=== PATIENT | male | born 1960 | race Caucasian/White ===

== ENCOUNTER 2022-07-24 09:51 | Outpatient (CLI) | payer BC, SELFPAY ==
--- NOTE | 2022-07-24 10:04 | ECG_ITS ---
Measurements Intervals [place] Rate: 61 P: 22 KS: 197 QRS: -15 QRSD: 93 T: 21 QT: 364 QTc: 369 Interpretive Statements SINUS RHYTHM MINIMAL VOLTAGE CRITERIA FOR LVH, CONSIDER NORMAL VARIANT [MEETS CRITERIA IN ONE OF: R(aVL), S(V1), R(V5), R(V5/V6)+S(V1)] ABNORMAL ECG NO PREVIOUS ECG AVAILABLE FOR COMPARISON Electronically Signed On 07-24-2022 10:22:56 CDT by Stepan Daly M.D.
[2022-07-24 10:42] LABS: Anion Gap 14 mmol/L (8-16); Blood Urea Nitrogen 14 mg/dL (9-20); Calcium 9.5 mg/dL (8.4-10.2); Carbon Dioxide 26 mmol/L (22-30); Chloride 100 mmol/L (98-107); Estimated Glomerular Filt Rate > 60; Glucose 158 mg/dL (65-110); Potassium 4.3 mmol/L (3.4-5.0); Sodium 140 mmol/L (137-145)
== END 2022-07-24 09:52 | disposition home or self-care (01) ==
LOC: ANHSURGERY 09:57
PROVIDERS: Anesthesiology; PCP Family Medicine; Visit Provider Surgery
DX: Z01.818 Encounter for other preprocedural examination (principal); E11.9 Type 2 diabetes mellitus without complications; K40.90 Unilateral inguinal hernia, without obstruction or gangrene, not specified as recurrent; R94.31 Abnormal electrocardiogram [ECG] [EKG]
CPT/HCPCS: 36415; 80048; 86850; 86900; 86901; 93005

== ENCOUNTER 2022-07-30 00:51 | Day surgery (SDC) | payer BC, SELFPAY ==
[2022-07-23 12:58] VITALS: BMI 38.0
--- NOTE | 2022-07-23 13:00 | SUR.PREOP ---
Report to the Outpatient Waiting Room, entrance under the green pavilion located off [facility], at time _0600 on date _07/30/22 . Planned Procedure Time: _0730. Time changes happen often and if your time is changed the preop area will call you the afternoon before. - You and your visitor will be asked to self-screen and do not enter if you have any COVID symptoms. - We encourage only one visitor and NO visitors under age 16 are allowed at this time. Your visitor will receive communication by the phone number that is given day of service. - The patient visitor is requested to social distance or may leave the building when not with patient due to restrictions. - A mask is required within the hospital. Patients may have clear liquids (water, carbonated beverages, clear teas, apple juice) until 3 hours prior to surgery with a maximum of 20 ounces. - No food from midnight until time of surgery - Infants may have breast milk until 4 hours before surgery, infant formula 6 hours prior to surgery. - Children will be allowed to drink immediately following surgery. If applicable, please bring a bottle or sippy cup to assist with drinking. Juice, water, soda, and popsicles are readily available. For infants on formula, please bring formula the day of surgery. Pacifiers are allowed. Take the following medications with a SIP of water the morning of surgery: __METOPROLOL Medications to discontinue per physician _MULTIVITAMIN,VITAMIN B Date to take last dose__07/27/22 Please no make-up, nail croatian, hairspray, perfume, deodorant, or body powder the day of surgery. No jewelry (including any body piercings) or valuables the day of surgery, leave them at home. Please take a shower or bath the night before, or the morning of, surgery with an antibacterial soap. Wear comfortable, loose fitting clothing. Children are encouraged to wear pajamas. HIBICLENS SHOWER AM OF SURGERY. - Jewelry must be removed prior to entering the operating room. Rings and piercings that are not removed may be cut off. - The hospital will not accept responsibility for valuables. - Please leave all valuables, including medications, at home the day of surgery. If you are going home after surgery, a licensed assembly line driver must drive you home. - NO public transportation without another adult. - We recommend that an adult stay with you for 24 hours following discharge. - We also recommend that you do not drive, make important decision, drink alcoholic beverages, or take any drugs that were not prescribed by your health care provider for at least 24 hours after your discharge time. For Pediatric surgeries, we recommend two adults accompany the child home. Follow any additional instructions given to you from your surgeon. If you or anyone in your household have experienced Covid symptoms in the past week, please notify your surgeon or the nurse liaison at the phone number below for possible testing. Telephone instructions given to _WIFE WILSON GREY. and asked if any additional questions and then verbalized understanding. Patient advised to call surgeon office or pre surgery nurse liaison [phone] if any additional questions.
--- NOTE | 2022-07-29 09:58 | WPDANESEPPF ---
Anes - Initial Pre Proc Eval Procedure: Operation Date: 07/30/22 07:30 Proposed Procedures p Laparoscopic Bilateral Inguinal Hernia Repair with Mesh, Davinci Assisted - Urban Ramírez DO <Conner Matamoros MD - Last Filed: 08/02/22 10:45> Date/Time: 07/29/22 09:58 <Conner Matamoros MD - Last Filed: 08/02/22 10:45> Surgeon: Urban Ramírez DO <Conner Matamoros MD - Last Filed: 08/02/22 10:45> Pre Op Diagnosis: bilat inguinal hernia <Conner Matamoros MD - Last Filed: 08/02/22 10:45> Patient Data Age: 62 Gender: M Height: 1.73 m Weight: 113.63 kg <Conner Matamoros MD - Last Filed: 08/02/22 10:45> Allergies Allergy/AdvReac Type Severity Reaction Status Date / Time No Known Allergies Allergy Verified 07/23/22 12:32 <Conner Matamoros MD - Last Filed: 08/02/22 10:45> Home Medications Medication Instructions Recorded Confirmed Type aspirin 81 mg tablet,delayed 81 mg PO DAILY 11/07/21 07/30/22 History release (Lita Low Dose Aspirin) atorvastatin 40 mg tablet 40 mg PO DAILY #90 tabs 11/07/21 07/30/22 Rx metformin 1,000 mg tablet,extended 1,000 mg PO BID #180 tabs 11/07/21 07/30/22 Rx release 24hr cyanocobalamin (vitamin B-12) 1,000 mcg PO DAILY 05/10/22 07/30/22 History 1,000 mcg tablet dapagliflozin 10 mg tablet 10 mg PO DAILY #90 tabs 05/10/22 07/30/22 Rx (Farxiga) glimepiride 2 mg tablet 2 mg PO QAM #90 tabs 05/10/22 07/30/22 Rx irbesartan 300 mg tablet 300 mg PO DAILY #90 tabs 05/10/22 07/30/22 Rx metoprolol succinate 50 mg 50 mg PO DAILY 07/23/22 07/30/22 History tablet,extended release 24 hr multivitamin 1 tablet PO DAILY 07/23/22 07/30/22 History psyllium 1 packet PO TID 07/23/22 07/30/22 History hydrocodone 5 mg-acetaminophen 325 1 tablet PO Q4H PRN pain #10 tabs 07/30/22 Rx mg tablet <Conner Matamoros MD - Last Filed: 08/02/22 10:45> Patient hx anesthesia problems: none <Riccardo Bailey MD - Last Filed: 07/30/22 06:29> Family hx anesthesia problems: none <Riccardo Bailey MD - Last Filed: 07/30/22 06:29> Results Review: All pre-operative results and documents have been reviewed as part of the pre-operative evaluation. <Conner Matamoros MD - Last Filed: 08/02/22 10:45> [facility] Past Medical History Medical History: Medical History Bladder wall thickening BMI 37.0-37.9, adult BMI 38.0-38.9,adult Colon cancer screening normal colonoscopy at age 47 and at age 58 dorian Rinaldi in 10 years Diabetes Diabetic peripheral neuropathy associated with type 2 diabetes mellitus Elevated TSH (05/04/22) TSH slightly elevated at 5.24 on 05/04/2022. Encounter for prostate cancer screening PSA normal at 0.17 on 05/04/2022. Encounter for wellness examination in adult Essential hypertension Fatty liver disease, nonalcoholic Noted on CT the abdomen and pelvis on 01/11/2021. Labs on 05/04/2022 with GGT normal at 44, AST 33, ALT 38. Hearing loss HTN (hypertension) Inguinal hernia bilateral, non-recurrent (01/11/21) bilateral inguinal hernia 4.[address] abdomen and pelvis on 01/11/2021. Mixed hyperlipidemia Total cholesterol 111 with triglycerides elevated at 215 with HDL low at 32 and LDL normal at 51 on 05/04/2022. Obesity (BMI 30-39.9) Thick muscular wall of urinary bladder present on ultrasound Type 2 diabetes mellitus, without long-term current use of insulin Fasting glucose 188 with hemoglobin A1c 8.1 on 05/04/2022 with microalbumin ratio normal at 7. Vitamin B12 deficiency (05/04/22) Level low at 324 with goal greater than 400 on 05/04/2022 with hemoglobin 14.8. <Conner Matamoros MD - Last Filed: 08/02/22 10:45> Surgical History Surgical History: Surgical History History of cataract surgery S/P arthroscopic surgery of left knee <Conner Matamoros MD - Last Filed: 08/02/22 10:45> Fa
[2022-07-30] VITALS (7 sets, daily range): BP systolic 114–125; BP diastolic 66–89; PULSE 60–71; RESP 12–18; TEMP 36.4–37.5; O2SAT 93–99
[2022-07-30] MEDS: LACTATED RINGERS 1,000 ML 30 ML IV CONT ×2 (06:40→09:06)
[2022-07-30] MEDS: KETOROLAC 15 MG/ML VIAL (*BKC) IV PUSH (06:44)
[2022-07-30] MEDS: ACETAMINOPHEN 500 MG TABLET 1000 MG PO (06:45)
[2022-07-30 06:48] LABS: Glucose Point of Care 168 mg/dl (65-105)
--- NOTE | 2022-07-30 07:13 | PM.IMHP ---
H&P: HPI History of Present Illness Date/Time: 07/30/22 07:13 Chief Complaint: Bilateral inguinal hernia Narrative: 62 yo man presents for bilateral inguinal hernia repair. He denies any changes since last seen in office. Review of Systems Review of Systems: All systems reviewed & are unremarkable except as noted in HPI and below Constitutional: Constitutional: Denies chills, Denies fever(s), Denies headache(s) and Denies weight loss Eyes: Eyes: Denies change in vision ENT: Denies dizziness, Denies headache(s), Denies neck mass and Denies throat swelling Cardiovascular: Cardiovascular: Denies chest pain, Denies lightheadedness and Denies dyspnea Respiratory: Respiratory: Denies cough, Denies dyspnea and Denies wheezing Gastrointestinal: Gastrointestinal: Denies abdominal pain, Denies change in bowel habits, Denies nausea and Denies vomiting Genitourinary: Genitourinary: Denies hematuria and Denies dysuria Musculoskeletal: Musculoskeletal: Reports as per HPI Integumentary/Breasts: Skin/Breast: Reports as per HPI Neurologic: Denies dizziness and Denies headache(s) Allergic/Immunologic: Allergic/Immunologic: Denies throat swelling and Denies wheezing [facility] Past Medical History Medical History Bladder wall thickening BMI 37.0-37.9, adult BMI 38.0-38.9,adult Colon cancer screening normal colonoscopy at age 47 and at age 58 Dr. Will, recheck in 10 years Diabetes Diabetic peripheral neuropathy associated with type 2 diabetes mellitus Elevated TSH (05/04/22) TSH slightly elevated at 5.24 on 05/04/2022. Encounter for prostate cancer screening PSA normal at 0.17 on 05/04/2022. Encounter for wellness examination in adult Essential hypertension Fatty liver disease, nonalcoholic Noted on CT the abdomen and pelvis on 01/11/2021. Labs on 05/04/2022 with GGT normal at 44, AST 33, ALT 38. Hearing loss HTN (hypertension) Inguinal hernia bilateral, non-recurrent (01/11/21) bilateral inguinal hernia 4.[address] abdomen and pelvis on 01/11/2021. Mixed hyperlipidemia Total cholesterol 111 with triglycerides elevated at 215 with HDL low at 32 and LDL normal at 51 on 05/04/2022. Obesity (BMI 30-39.9) Thick muscular wall of urinary bladder present on ultrasound Type 2 diabetes mellitus, without long-term current use of insulin Fasting glucose 188 with hemoglobin A1c 8.1 on 05/04/2022 with microalbumin ratio normal at 7. Vitamin B12 deficiency (05/04/22) Level low at 324 with goal greater than 400 on 05/04/2022 with hemoglobin 14.8. Surgical History Surgical History History of cataract surgery S/P arthroscopic surgery of left knee Family History Family History Father Cancer Mother Diabetes mellitus Hypertension Sibling Hypertension Depression Heart disease Social History Social History Smoking status: Never smoker Tobacco type: cigarettes Smoking end date: 10/06/01 Additional smoking assessment comments: 1 ppd x10 Alcohol intake: never Substance use: never Substance use type: does not use Living arrangements: with family Spiritual care concerns: No Meds Home Medications and Allergies Home Medications Medication Instructions Recorded Confirmed Type aspirin 81 mg tablet,delayed 81 mg PO DAILY 11/07/21 07/30/22 History release (Lita Low Dose Aspirin) atorvastatin 40 mg tablet 40 mg PO DAILY #90 tabs 11/07/21 07/30/22 Rx metformin 1,000 mg tablet,extended 1,000 mg PO BID #180 tabs 11/07/21 07/30/22 Rx release 24hr cyanocobalamin (vitamin B-12) 1,000 mcg PO DAILY 05/10/22 07/30/22 History 1,000 mcg tablet dapagliflozin 10 mg tablet 10 mg PO DAILY #90 tabs 05/10/22 07/30/22 Rx (Farxiga) glimepiride 2 mg tablet 2 mg PO QAM #90 tabs 05/10/22 07/30/22 Rx ir
--- NOTE | 2022-07-30 07:15 | WPDHPUPDATE1 ---
History and Physical Update Update Date/Time: 07/30/22 07:15 History and Physical has been reviewed, including an updated exam of the patient. There are NO changes in the patient's condition. Risks, benefits, and alternatives have been discussed and questions answered. Patient agrees to proceed with procedure.
[2022-07-30] MEDS: ceFAZolin 2 GM/D5W 50 ML 2 GM/50 ML BAG IVPB (07:27)
[2022-07-30] MEDS: BUPIVACAINE/EPINEPHRINE 0.25% 50 ML VIAL 30 ML INFILTRATE (08:01)
--- NOTE | 2022-07-30 08:54 | W.PM.PROC2 ---
Procedure Note - Detailed Date of Procedure 07/30/22 Pre-op Diagnosis bilateral inguinal hernia Post-op Diagnosis Same (Direct right inguinal hernia, indirect left inguinal hernia) Procedure Performed Laparoscopic bilateral inguinal hernia repair with mesh, da Sarika assisted Surgeon Urban Ramírez, Anesthesia General and Local (0.5% bupivacaine with epinephrine) Indications This is a 62-year-old man who presented with bilateral inguinal discomfort and tightness with physical activity for the past year. Had a CT his abdomen and pelvis performed by his PCP which showed evidence bilateral fat containing inguinal hernias. Bilateral reducible hernias were identified on exam. Discussions were made with the patient about treatment options and decision was made to proceed with robotic assisted laparoscopic bilateral inguinal hernia repair with mesh. On the day of the surgery the patient did state that he was having some periumbilical discomfort as well. No hernia was palpable in this region on exam. I discussed with patient that I would examine the area laparoscopically at the time of surgery. Findings Laparoscopic bilateral inguinal hernia repair was performed. Upon inspecting the abdomen laparoscopically, I did not identify in umbilical hernia in the area of patient's discomfort. He did a small direct right inguinal hernia and small indirect left inguinal hernia. A robotic transabdominal preperitoneal approach was utilized for inguinal hernia repair. Large Bard 3DMax mid mesh was placed on each side overlying the entire myopectineal orifice. No specimens were obtained for pathology. Description of Procedure Procedure as well as risks, benefits, and alternatives were discussed with the patient. Written consent was obtained and placed in chart prior to procedure. Patient was brought back to surgical suite. He was placed supine on operating table. Time-out was done to confirm patient and procedure. He was then intubated by Anesthesia Department. His abdomen was prepped and draped in sterile fashion using chlorhexidine prep. 0.5% bupivacaine with epinephrine was infiltrated at each location for incision. An 8 mm incision was made in the left lateral abdomen, and a 5 mm Optiview trocar was advanced through the abdominal layers under direct visualization. Once inside the abdominal cavity, carbon dioxide insufflation was used to create a pneumoperitoneum. A camera was inserted and the abdominal cavity was inspected. The patient was placed in slight Trendelenburg position. An 8 millimeter incision was made on the right lateral abdomen and an 8 millimeter trocar was inserted under direct visualization. Another 8 millimeter incision was made just superior to the umbilicus and an 8 millimeter trocar was inserted under direct visualization. The 5 mm port was then removed and this was replaced with another 8 mm robotic port. The robotic arms were brought up to the patient's bedside and secured to the ports. The camera and instruments were inserted. I then moved over to the robotic console and took control of the camera and instruments. After careful inspection of the abdominal cavity, I began scoring the peritoneum along the right lower quadrant using scissors with electrocautery. The preperitoneal plane was entered and this was carefully dissected caudally along the inferior epigastric vessels. Careful dissection with scissors with electrocautery and blunt dissection was used to continue this dissection. I dissected far enough laterally to allow for mesh placement, and also dissected medially to identify the pubic arch and Dale's ligament. The hernia sac was identified and carefully dissected posteriorly. The cord contents were also identified and the peritoneum was carefully dissected far enough posteriorly to allow for mesh placement. Once an adequate pocket was created, I then placed the mesh within the preperitoneal pocket and carefully unfolded it.
[2022-07-30 09:16] LABS: Glucose Point of Care 167 mg/dl (65-105)
== END 2022-07-30 10:55 | disposition home or self-care (01) ==
PROVIDERS: PCP Family Medicine; Visit Provider Surgery
PROC: 8E0Y4CZ Robotic Assisted Procedure of Lower Extremity, Percutaneous Endoscopic Approach (ICD-10-PCS; CPT 49650; principal; 2022-07-30 07:30)
DX: K40.20 Bilateral inguinal hernia, without obstruction or gangrene, not specified as recurrent (principal); E11.42 Type 2 diabetes mellitus with diabetic polyneuropathy; I10 Essential (primary) hypertension; K75.81 Nonalcoholic steatohepatitis (NASH); E78.2 Mixed hyperlipidemia; E53.8 Deficiency of other specified B group vitamins; Z87.891 Personal history of nicotine dependence; Z79.82 Long term (current) use of aspirin; Z79.84 Long term (current) use of oral hypoglycemic drugs; E66.9 Obesity, unspecified; Z68.36 Body mass index [BMI] 36.0-36.9, adult
CPT/HCPCS: 49650; S2900; 82948; A9270; C1781; J0690; J1100; J1170; J1885; J2250; J2405; J2704; J2710; J3010; J7120

== ENCOUNTER 2023-04-25 08:58 | Outpatient (CLI) | payer BC, SELFPAY ==
--- NOTE | 2023-04-25 09:31 | EST_ITS ---
Patient Info Name: Alexi Mcdonald Age: 62 years : 1960 Gender: Male Ht: 67 in Wt: 220 lbs BSA: 2.21 m2 HR: 67 bpm BP: 145 / 86 mmHg Heart Rhythm: Sinus Rhythm Exam Date: 04/25/2023 10:24 AM Exam Location: [facility] Stress Patient Status: Outpatient Admit Date: 04/25/2023 Staff Ordering Physician: Michelle Macedo NP Attending Provider: Michelle Macedo NP Exercise Technologist: Karrie Ji CT Exercise Physician: Jay Arshad DO Exam Type: CA stress test treadmill Study Info Indications R06.02 - Shortness of breath R07.9 - Chest pain, unspecified A treadmill exercise stress test was performed. Summary 1. 1. Negative Damian exercise stress test for ischemic ST changes by ECG criteria. 2. 2. Reduced functional capacity, achieving 8 METs of workload. 3. 3. Baseline hypertension. 4. 4. Appropriate HR response to exercise. 5. 5. Appropriate HR recovery at 1 minute post exercise. 6. 6. No imaging with stress testing. 7. 7. Patient informed of the above results. Protocol: [facility] Stress ECG Details Stage: REST Duration (min): 1 min : 8 sec Speed (mph): 0.0 Grade (%): 0 HR (bpm): 65 SBP (mmHg): 145 DBP (mmHg): 86 METS: --- Stage: REST Duration (min): 21 min : 57 sec Speed (mph): 0.0 Grade (%): 0 HR (bpm): 67 SBP (mmHg): 145 DBP (mmHg): 86 METS: --- Stage: STAGE 1 Duration (min): 1 min : 0 sec Speed (mph): 1.7 Grade (%): 10 HR (bpm): 94 SBP (mmHg): 145 DBP (mmHg): 86 METS: --- Stage: STAGE 1 Duration (min): 2 min : 0 sec Speed (mph): 1.7 Grade (%): 10 HR (bpm): 108 SBP (mmHg): 145 DBP (mmHg): 86 METS: --- Stage: STAGE 1 Duration (min): 3 min : 0 sec Speed (mph): 1.7 Grade (%): 10 HR (bpm): 110 SBP (mmHg): 193 DBP (mmHg): 110 METS: --- Stage: STAGE 2 Duration (min): 1 min : 0 sec Speed (mph): 2.5 Grade (%): 12 HR (bpm): 125 SBP (mmHg): 187 DBP (mmHg): 98 METS: --- Stage: STAGE 2 Duration (min): 2 min : 0 sec Speed (mph): 2.5 Grade (%): 12 HR (bpm): 128 SBP (mmHg): 187 DBP (mmHg): 98 METS: --- Stage: STAGE 2 Duration (min): 3 min : 0 sec Speed (mph): 2.5 Grade (%): 12 HR (bpm): 129 SBP (mmHg): 185 DBP (mmHg): 98 METS: --- Stage: STAGE 3 Duration (min): 1 min : 0 sec Speed (mph): 3.4 Grade (%): 14 HR (bpm): 138 SBP (mmHg): 185 DBP (mmHg): 98 METS: --- Stage: STAGE 3 Duration (min): 1 min : 0 sec Speed (mph): 3.4 Grade (%): 14 HR (bpm): 138 SBP (mmHg): 185 DBP (mmHg): 98 METS: --- Stage: RECOVERY Duration (min): 0 min : 59 sec Speed (mph): 0.0 Grade (%): 0 HR (bpm): 103 SBP (mmHg): 185 DBP (mmHg): 98 METS: --- Stage: RECOVERY Duration (min): 1 min : 59 sec Speed (mph): 0.0 Grade (%): 0 HR (bpm): 81 SBP (mmHg): 185 DBP (mmHg): 98 METS: --- Stage: RECOVERY Duration (min): 2 min : 59 sec Speed (mph): 0.0 Grade (%)
--- NOTE | 2023-04-25 11:03 | ECG_ITS ---
Measurements Intervals [place] Rate: 72 P: 5 AL: 184 QRS: -12 QRSD: 86 T: 31 QT: 356 QTc: 390 Interpretive Statements SINUS RHYTHM NORMAL ECG COMPARED TO ECG 07/24/2022 10:19:27 NO SIGNIFICANT CHANGES Electronically Signed On 04-25-2023 13:08:40 CDT by Jay Arshad D.O.
== END 2023-04-25 08:59 | disposition home or self-care (01) ==
PROVIDERS: PCP Family Medicine; Visit Provider Nurse Practitioner Family
DX: E78.2 Mixed hyperlipidemia (principal); I10 Essential (primary) hypertension; R06.02 Shortness of breath; R07.9 Chest pain, unspecified; R68.89 Other general symptoms and signs
CPT/HCPCS: 93005; 93017